=== PATIENT | female | born 1960 | race Caucasian/White ===

== ENCOUNTER → 2017-03-03 13:10 | Outpatient (CLI) | payer OTHER ==
[2016-01-21 05:52] VITALS: BMI 30.5
[~2017-03-03 13:10] MED LIST: CALAN SR240 MG PO; CITRACAL + D E1 EACH PO; FLUTICASONE PRO16 GM NASAL; HYDROCHLOROTHIA25 MG PO; LIPITOR40 MG PO; MULTI-DAY VITAM1 TAB PO; ULTRAM50 MG PO; VITAMIN B COMPL1 TAB PO; VITAMIN D31000 UNIT PO; ZESTRIL40 MG PO; ZYRTEC10 MG PO
== END | disposition home or self-care (01) ==
LOC: D.MAMMO 11:45
DX: Z12.31 Encounter for screening mammogram for malignant neoplasm of breast (principal)

== ENCOUNTER → 2019-10-04 22:00 | Outpatient (CLI) | payer OTHER ==
[2016-01-21 05:52] VITALS: BMI 30.5
== END | disposition home or self-care (01) ==
LOC: D.MAMMO 09:30
PROVIDERS: ATTEND Family Medicine
DX: Z12.31 Encounter for screening mammogram for malignant neoplasm of breast (principal)